=== PATIENT | male | born 1965 | race Two or more races ===

== ENCOUNTER 2018-06-17 09:22 | Inpatient (IN) | payer MEDICAID ==
[~2018-06-17] VITALS: Ht 160 cm; Wt 111.9 kg
[2018-06-17] MEDS ORDERED: SODIUM CHLORIDE 0.9% 1,000ML IVBOLUS ONE ×2 (10:30→12:00)
[2018-06-17] MEDS ORDERED: THIAMINE 100MG TABLET PO ONE (10:30)
[2018-06-17] MEDS ORDERED: LORazepam 1MG TABLET PO ONE (10:30)
[2018-06-17] MEDS ORDERED: ONDANSETRON 2MG/ML, 2ML IVPush ONE (10:30)
[2018-06-17 10:40] LABS: ALANINE AMINOTRANSFERASE 30 U/L (12-78); ALBUMIN 3.2 g/dL (3.4-5.0); ANION GAP 14 mmol/L (5-15); CALCIUM 8.5 mg/dL (8.5-10.1); CHLORIDE 105 mmol/L (98-107); CREATININE 1.19 mg/dL (0.7-1.3)
[2018-06-17 10:42] LABS: ALKALINE PHOSPHATASE 136 U/L (45-117); BILIRUBIN,TOTAL 2.6 mg/dL (0.2-1.0); TOTAL PROTEIN 8.1 g/dL (6.4-8.2)
[2018-06-17] MEDS ORDERED: THIAMINE 100MG TABLET ONE (10:43)
[2018-06-17] MEDS ORDERED: ONDANSETRON ODT 4 MG ONE (10:44)
[2018-06-17] MEDS ORDERED: LORazepam 1MG TABLET ONE (10:44)
[2018-06-17 10:52] LABS: CULTURE INDICATED? NO; MICROSCOPIC NOT IND
[2018-06-17] MEDS ORDERED: ONDANSETRON ODT 4 MG PO ONE (11:00)
[2018-06-17 11:01] LABS: MEAN CORPUSCULAR HEMOGLOBIN 32.9 pg (27.5-34.5); MEAN CORPUSCULAR HGB CONC 34.6 g/dL (33.2-36.2); MEAN CORPUSCULAR VOLUME 95.1 fL (81-97); MEAN PLATELET VOLUME 8.1 fL (7.4-10.4); PLATELET COUNT 92 x10^3/uL (130-400); RED BLOOD COUNT 4.25 x10^6/uL (4.38-5.82); RED CELL DISTRIBUTION WIDTH 14.4 % (9.4-14.8)
[2018-06-17 11:03] LABS: MD YES
[2018-06-17 11:05] LABS: BAND#(MANUAL) 0.85 x10^3/uL; BANDS%(MANUAL) 12 % (0-7); LYMPH#(MANUAL) 1.28 x10^3/uL (1-3.4); LYMPHS% (MANUAL) 18 % (22-44); SEG#(MANUAL) 4.97 x10^3/uL (1.8-6.8); SEGS% (MANUAL) 70 % (42-75)
[2018-06-17 11:07] LABS: <PLATELET ESTIMATE> DECREASED; <RBC MORPHOLOGY> NORMAL
[2018-06-17 11:08] LABS: <PLT MORPHOLOGY> NORMAL PLT MORPH; TOXIC GRAN 1+
[2018-06-17] MEDS ORDERED: POTASSIUM CHLORIDE 20 MEQ TAB.ER.PRT PO ONE (11:30)
[2018-06-17] MEDS ORDERED: POTASSIUM CHLORIDE 20 MEQ TAB.ER.PRT ONE (11:55)
[2018-06-17] MEDS ORDERED: ACETAMINOPHEN 500 MG TABLET ONE (12:22)
[2018-06-17] MEDS ORDERED: ACETAMINOPHEN 325 MG TABLET PO ONE (12:30)
[2018-06-17] MEDS ORDERED: OMNIPAQUE 350 MG/ML, 100ML BOTTLE ONE (13:07)
[2018-06-17] MEDS ORDERED: ONDANSETRON 2MG/ML, 2ML IVPush PRN (14:00)
[2018-06-17] MEDS ORDERED: LABETALOL 5MG/ML, 20ML IVPush PRN (14:00)
[2018-06-17] MEDS ORDERED: LORazepam 2 MG/ML, 1ML IVPush PRN (14:00)
[2018-06-17] MEDS: NICOTINE 21 MG/24 HR PATCH.TD24 TD SCH (14:00)
[2018-06-17] MEDS ORDERED: morphine SULFATE 10 MG/ML, 1ML IVPush PRN (14:00)
[2018-06-17] MEDS: SODIUM CHLORIDE 0.9% 1,000 ML IV SCH ×2 (14:00→20:40)
[2018-06-17 14:02] LABS: INTERNATIONAL NORMALIZED RATIO 1.43 (0.93-1.1); PROTHROMBIN TIME 14.6 Seconds (9.6-11.5)
[2018-06-17] MEDS ORDERED: POTASSIUM CHLORIDE 20 MEQ, MAGNESIUM SULFATE 1 GM, FOLIC ACID 1 MG, THIAMINE 200 MG, MV... IV SCH (14:30)
[2018-06-17] MEDS: CEFTRIAXONE 2 GM in SODIUM CHLORIDE 0.9% 50 ML IV SCH (16:08)
[2018-06-17] MEDS: OCTREOTIDE 500 MCG in SODIUM CHLORIDE 0.9% 249 ML IV SCH (16:08)
[2018-06-17] MEDS: PANTOPRAZOLE 80 MG in SODIUM CHLORIDE 0.9% 100 ML IV SCH (16:08)
[2018-06-17] MEDS: METRONIDAZOLE PMX 500MG/100ML 100 ML IV SCH (18:15)
[2018-06-17 20:00] VITALS: BP 104/53
[2018-06-18] MEDS: PANTOPRAZOLE 80 MG in SODIUM CHLORIDE 0.9% 100 ML IV SCH (00:57)
[2018-06-18] MEDS: OCTREOTIDE 500 MCG in SODIUM CHLORIDE 0.9% 249 ML IV SCH (00:57)
[2018-06-18 01:57] VITALS: BP 110/65
[2018-06-18] MEDS: METRONIDAZOLE PMX 500MG/100ML 100 ML IV SCH (02:34)
[2018-06-18 05:35] LABS: CHLORIDE 106 mmol/L (98-107)
[2018-06-18 05:43] LABS: ALANINE AMINOTRANSFERASE 24 U/L (12-78); ALBUMIN 2.4 g/dL (3.4-5.0); ALKALINE PHOSPHATASE 97 U/L (45-117); ANION GAP 8 mmol/L (5-15); BILIRUBIN,TOTAL 1.4 mg/dL (0.2-1.0); CALCIUM 7.4 mg/dL (8.5-10.1); CHOL/HDL RATIO 4.5; CHOLESTEROL, TOTAL 89 mg/dL (140-239); CREATININE 0.88 mg/dL (0.7-1.3); HDL CHOL % 22 % (26-37); HDL CHOLESTEROL (DIRECT) 20 mg/dL (40-60); LDL CHOLESTEROL,CALCULATED 39 mg/dL (54-169); TOTAL PROTEIN 6.4 g/dL (6.4-8.2); TRIGLYCERIDES 152 mg/dL (50-200); VLDL CHOLESTEROL 30 mg/dL (0-25)
[2018-06-18 05:59] LABS: CLOSTRIDIUM DIFFICILE ANTIGEN NEGATIVE; CLOSTRIDIUM DIFFICILE TOXIN NEGATIVE (Negative)
[2018-06-18] MEDS ORDERED: LORazepam 0.5MG TABLET PO PRN (06:00)
[2018-06-18] MEDS ORDERED: LORazepam 1MG TABLET PO PRN ×4 (06:00)
[2018-06-18] MEDS ORDERED: LORazepam 2 MG/ML, 1ML IV PRN ×9 (06:00→06:30)
[2018-06-18 06:10] LABS: MEAN CORPUSCULAR HGB CONC 33.1 g/dL (33.2-36.2); MEAN CORPUSCULAR VOLUME 96.5 fL (81-97); MEAN PLATELET VOLUME 8.5 fL (7.4-10.4); PLATELET COUNT 75 x10^3/uL (130-400); RED CELL DISTRIBUTION WIDTH 14.8 % (9.4-14.8)
[2018-06-18 06:11] LABS: MD YES
[2018-06-18 06:13] LABS: <RBC MORPHOLOGY> NORMAL; BAND#(MANUAL) 0.47 x10^3/uL; BANDS%(MANUAL) 8 % (0-7); EOS#(MANUAL) 0.06 x10^3/uL (0.0-0.4); EOS% (MANUAL) 1 % (1-7); LYMPH#(MANUAL) 1.36 x10^3/uL (1-3.4); LYMPHS% (MANUAL) 23 % (22-44); MONOS% (MANUAL) 5 % (2-9); SEG#(MANUAL) 3.72 x10^3/uL (1.8-6.8); SEGS% (MANUAL) 63 % (42-75)
[2018-06-18 06:14] LABS: <PLATELET ESTIMATE> DECREASED; <PLT MORPHOLOGY> NORMAL PLT MORPH
[2018-06-18] MEDS ORDERED: SODIUM CHLORIDE 0.9% 1,000ML IVBOLUS ONE (06:30)
[2018-06-18] MEDS ORDERED: VANCOMYCIN PER PHARMACY MC PRN (06:30)
[2018-06-18] MEDS: PANTOPRAZOLE 40 MG IV IVPush SCH ×2 (07:49→21:35)
[2018-06-18] MEDS: CHLORDIAZEPOXIDE 25 MG CAPSULE PO SCH ×3 (07:49→21:35)
[2018-06-18] MEDS: LORazepam 2 MG/ML, 1ML IVPush PRN ×3 (07:51→19:57)
[2018-06-18] MEDS ORDERED: SODIUM PHOSPHATE 20 MMOL in SODIUM CHLORIDE 0.9% 500 ML IV ONE (08:00)
[2018-06-18] MEDS ORDERED: MULTIVITAMIN 1 TABLET PO SCH (09:00)
[2018-06-18] MEDS: SODIUM CHLORIDE 0.9% 1,000 ML IV SCH (09:36)
[2018-06-18 11:15] LABS: CRYPTOSPORIDIUM ANTIGEN Negative (Negative)
[2018-06-18] MEDS ORDERED: MVI ADULT IV SCH (14:30)
[2018-06-18] MEDS ORDERED: [UNRECOGNIZED DRUG - OTHER] IV SCH (14:30)
[2018-06-18] MEDS ORDERED: MAGNESIUM SULFATE IV SCH (14:30)
[2018-06-18] MEDS ORDERED: THIAMINE IV SCH (14:30)
[2018-06-18] MEDS ORDERED: FOLIC ACID IV SCH (14:30)
[2018-06-18] MEDS: PHYTONADIONE 10 MG/ML, 1ML SQ SCH (15:14)
[2018-06-18] MEDS: NICOTINE 21 MG/24 HR PATCH.TD24 TD SCH (15:14)
[2018-06-18] MEDS: CEFTRIAXONE 2 GM in SODIUM CHLORIDE 0.9% 50 ML IV SCH (15:16)
[2018-06-18] MEDS: [UNRECOGNIZED DRUG - OTHER] IV SCH (17:43)
[2018-06-18] MEDS: THIAMINE IV SCH (17:43)
[2018-06-18] MEDS: MAGNESIUM SULFATE IV SCH (17:43)
[2018-06-18] MEDS: FOLIC ACID IV SCH (17:43)
[2018-06-18] MEDS: MVI ADULT IV SCH (17:43)
[2018-06-19 02:47] LABS: OSMOLALITY,URINE 82 mOsm/kg (500-850)
[2018-06-19 03:10] LABS: CREATININE,URINE RANDOM < 13.00 mg/dL
[2018-06-19] MEDS: SODIUM CHLORIDE 0.9% 1,000 ML IV SCH (03:20)
[2018-06-19 04:52] LABS: BASOPHILS # (AUTO) 0.05 x10^3/uL (0-0.1); BASOPHILS % (AUTO) 1 % (0-1); EOSINOPHILS # (AUTO) 0.13 x10^3/uL (0-0.4); EOSINOPHILS % (AUTO) 2 % (1-7); LYMPHOCYTES # (AUTO) 1.76 x10^3/uL (1-3.4); LYMPHOCYTES % (AUTO) 25 % (22-44); MD NO; MEAN CORPUSCULAR HEMOGLOBIN 32.6 pg (27.5-34.5); MEAN CORPUSCULAR HGB CONC 33.5 g/dL (33.2-36.2); MEAN CORPUSCULAR VOLUME 97.3 fL (81-97); MEAN PLATELET VOLUME 8.2 fL (7.4-10.4); MONOCYTES # (AUTO) 0.73 x10^3/uL (0.2-0.8); MONOCYTES % (AUTO) 10 % (2-9); NEUTROPHILS # (AUTO) 4.45 x10^3/uL (1.8-6.8); NEUTROPHILS % (AUTO) 63 % (42-75); PLATELET COUNT 129 x10^3/uL (130-400); RED BLOOD COUNT 3.95 x10^6/uL (4.38-5.82); RED CELL DISTRIBUTION WIDTH 14.9 % (9.4-14.8)
[2018-06-19 04:55] LABS: ANION GAP 5 mmol/L (5-15); CALCIUM 8.9 mg/dL (8.5-10.1); CHLORIDE 130 mmol/L (98-107); CREATININE 1.01 mg/dL (0.7-1.3)
[2018-06-19] MEDS ORDERED: DESMOPRESSIN 4 MCG/ML INJ IVPush ONE (05:30)
[2018-06-19] MEDS ORDERED: SODIUM CHLORIDE 0.45% 1,000 ML IV SCH (08:00)
[2018-06-19] MEDS ORDERED: SODIUM PHOSPHATE 20 MMOL in SODIUM CHLORIDE 0.9% 500 ML IV ONE (08:00)
[2018-06-19] MEDS: PANTOPRAZOLE 40 MG IV IVPush SCH (08:48)
[2018-06-19] MEDS: CHLORDIAZEPOXIDE 25 MG CAPSULE PO SCH ×3 (08:49→21:34)
[2018-06-19] MEDS: PHYTONADIONE 10 MG/ML, 1ML SQ SCH (08:49)
[2018-06-19] MEDS ORDERED: PANTOPROZOLE 40MG TABLET PO SCH (11:00)
[2018-06-19] MEDS: NICOTINE 21 MG/24 HR PATCH.TD24 TD SCH (14:12)
[2018-06-19] MEDS: INSULIN LISPRO 100 UNITS/ML, PEN SQ-INSULIN SCH ×2 (16:00→21:00)
[2018-06-19] MEDS: metFORMIN 500 MG TABLET PO SCH (16:31)
[2018-06-19 20:50] VITALS: BP 128/71
[2018-06-19] MEDS: PANTOPROZOLE 40MG TABLET PO SCH (21:33)
[2018-06-19] MEDS: AMOXICILLIN 500 MG CAPSULE PO SCH (21:33)
[2018-06-19] MEDS: CLARITHROMYCIN 500 MG TABLET PO SCH (21:34)
[2018-06-20 02:00] VITALS: BP 121/63
[2018-06-20 06:23] LABS: CHLORIDE 106 mmol/L (98-107)
[2018-06-20 06:30] LABS: ANION GAP 12 mmol/L (5-15); CREATININE 0.74 mg/dL (0.7-1.3)
[2018-06-20] MEDS: INSULIN LISPRO 100 UNITS/ML, PEN SQ-INSULIN SCH ×4 (07:00→21:00)
[2018-06-20 08:30] VITALS: BP 129/77
[2018-06-20] MEDS: CLARITHROMYCIN 500 MG TABLET PO SCH ×2 (09:25→20:38)
[2018-06-20] MEDS: metFORMIN 500 MG TABLET PO SCH ×2 (09:25→16:46)
[2018-06-20] MEDS: PANTOPROZOLE 40MG TABLET PO SCH ×2 (09:25→20:38)
[2018-06-20] MEDS: CHLORDIAZEPOXIDE 25 MG CAPSULE PO SCH ×2 (09:25→16:46)
[2018-06-20] MEDS: PHYTONADIONE 10 MG/ML, 1ML SQ SCH (09:26)
[2018-06-20] MEDS: AMOXICILLIN 500 MG CAPSULE PO SCH ×2 (09:32→20:38)
[2018-06-20] MEDS: NICOTINE 21 MG/24 HR PATCH.TD24 TD SCH (16:46)
[2018-06-20] MEDS: THIAMINE IV SCH (16:46)
[2018-06-20] MEDS: FOLIC ACID IV SCH (16:46)
[2018-06-20] MEDS: [UNRECOGNIZED DRUG - OTHER] IV SCH (16:46)
[2018-06-20] MEDS: MVI ADULT IV SCH (16:46)
[2018-06-20] MEDS: MAGNESIUM SULFATE IV SCH (16:46)
[2018-06-20] MEDS ORDERED: POTASSIUM CHLORIDE 20 MEQ TAB.ER.PRT PO ONE (18:00)
[2018-06-20 18:30] VITALS: BP 145/72
[2018-06-21 01:05] VITALS: BP 133/73
[2018-06-21 05:19] LABS: BASOPHILS # (AUTO) 0.07 x10^3/uL (0-0.1); BASOPHILS % (AUTO) 1 % (0-1); EOSINOPHILS # (AUTO) 0.27 x10^3/uL (0-0.4); EOSINOPHILS % (AUTO) 5 % (1-7); LYMPHOCYTES # (AUTO) 2.13 x10^3/uL (1-3.4); LYMPHOCYTES % (AUTO) 37 % (22-44); MD NO; MEAN CORPUSCULAR HEMOGLOBIN 32.9 pg (27.5-34.5); MEAN CORPUSCULAR VOLUME 96.6 fL (81-97); MEAN PLATELET VOLUME 8.3 fL (7.4-10.4); MONOCYTES # (AUTO) 0.42 x10^3/uL (0.2-0.8); MONOCYTES % (AUTO) 7 % (2-9); NEUTROPHILS # (AUTO) 2.82 x10^3/uL (1.8-6.8); NEUTROPHILS % (AUTO) 49 % (42-75); PLATELET COUNT 129 x10^3/uL (130-400); RED BLOOD COUNT 3.36 x10^6/uL (4.38-5.82); RED CELL DISTRIBUTION WIDTH 14.4 % (9.4-14.8)
[2018-06-21 05:23] LABS: ALANINE AMINOTRANSFERASE 37 U/L (12-78); ALBUMIN 2.6 g/dL (3.4-5.0); ANION GAP 10 mmol/L (5-15); CALCIUM 8.4 mg/dL (8.5-10.1); CHLORIDE 113 mmol/L (98-107); CREATININE 0.88 mg/dL (0.7-1.3)
[2018-06-21 05:25] LABS: ALKALINE PHOSPHATASE 169 U/L (45-117); BILIRUBIN,TOTAL 0.8 mg/dL (0.2-1.0); TOTAL PROTEIN 6.9 g/dL (6.4-8.2)
[2018-06-21] MEDS: INSULIN LISPRO 100 UNITS/ML, PEN SQ-INSULIN SCH ×2 (07:00→11:00)
[2018-06-21 07:52] VITALS: BP 144/73
[2018-06-21] MEDS ORDERED: POTASSIUM CHLORIDE 20 MEQ TAB.ER.PRT PO ONE (08:00)
[2018-06-21] MEDS ORDERED: FOLIC ACID 1 MG TABLET PO SCH (09:00)
[2018-06-21] MEDS ORDERED: CHLORDIAZEPOXIDE 25 MG CAPSULE PO SCH (09:00)
[2018-06-21] MEDS ORDERED: THIAMINE 100MG TABLET PO SCH (09:00)
[2018-06-21] MEDS: metFORMIN 500 MG TABLET PO SCH (09:47)
[2018-06-21] MEDS: PANTOPROZOLE 40MG TABLET PO SCH (09:48)
[2018-06-21] MEDS: AMOXICILLIN 500 MG CAPSULE PO SCH (09:48)
[2018-06-21] MEDS: CLARITHROMYCIN 500 MG TABLET PO SCH (09:48)
[2018-06-21] MEDS: PHYTONADIONE 10 MG/ML, 1ML SQ SCH (09:49)
[2018-06-21] MEDS ORDERED: PANT40TA5 PO (12:28)
[2018-06-21] MEDS ORDERED: THIA100T67 PO (12:28)
[2018-06-21] MEDS ORDERED: METF500T PO (12:28)
[2018-06-21] MEDS ORDERED: CLAR500T PO (12:28)
[2018-06-21] MEDS ORDERED: AMOX-291 PO (12:28)
[2018-06-21] MEDS: NICOTINE 21 MG/24 HR PATCH.TD24 TD SCH (14:08)
== END 2018-06-21 15:06 | disposition home or self-care (01) | DRG 433 ==
LOC: ED 11:03 → EDIP 13:06 → SUATTDRO 13:32 → 4EST 14:19 → 4WST 14:47 → CCU 06-18 06:40 → 3NE 06-19 14:25
PROVIDERS: ADMIT Internal Medicine; ATTEND Internal Medicine
DX: K70.30 Alcoholic cirrhosis of liver without ascites (principal); K92.1 Melena; E87.2 Acidosis; K76.6 Portal hypertension; F10.231 Alcohol dependence with withdrawal delirium; D62 Acute posthemorrhagic anemia; E87.0 Hyperosmolality and hypernatremia; Z68.41 Body mass index [BMI] 40.0-44.9, adult; D68.4 Acquired coagulation factor deficiency; R16.1 Splenomegaly, not elsewhere classified; E87.6 Hypokalemia; E66.01 Morbid (severe) obesity due to excess calories; I10 Essential (primary) hypertension; D69.6 Thrombocytopenia, unspecified; Y90.0 Blood alcohol level of less than 20 mg/100 ml; B96.81 Helicobacter pylori [H. pylori] as the cause of diseases classified elsewhere; E11.9 Type 2 diabetes mellitus without complications; F17.210 Nicotine dependence, cigarettes, uncomplicated; K21.9 Gastro-esophageal reflux disease without esophagitis; Z79.899 Other long term (current) drug therapy
CPT/HCPCS: 36415; 71045; 74177; 76700; 80048; 80053; 80061; 80307; 81003; 82570; 82962; 83036; 83605; 83690; 83735; 83930; 83935; 84100; 84145; 84295; 84300; 84443; 85018; 85025; 85610; 86677; 87040; 87046; 87081; 87324; 87328; 87329; 87427; 89055; 93005; 96360; 96361; 99285; G0378; J0696; J2354; J2597; J3411; J3430; J3475; J3480; J7070; Q0162; Q9967; C9113; J2060; J7030; J7040; J7050